=== PATIENT | female | born 1950 | race Two or more races ===

== ENCOUNTER 2017-08-02 11:29 | Inpatient (IN) | payer OTHER ==
[~2017-08-02] VITALS: Ht 154.9 cm; Wt 68.0 kg
[~2017-08-02 11:29] MED LIST: ASPIR 8181 MG; ATENOLOL100 MG PO; CELEBREX100 MG PO; CYMBALTA20 MG PO; LIPITOR40 MG; LIRICA; LYRICA100 MG; METFORMIN HCL850 MG; OMEPRAZOLE40 MG PO; OXYC1TAB9 PO; RESTORIL30 M1; SEPTRA DS TABLE1 TAB PO; XARELTO 10MG PO; ZANTAC300 MG PO
[2017-08-02] MEDS ORDERED: TOPROL XL50 M1 PO (11:46)
[2017-08-04] MEDS ORDERED: CLOPIDOGREL BIS75 MG PO (09:49)
[2017-08-04] MEDS ORDERED: ASPIR 8181 MG PO (09:49)
[2017-08-04] MEDS ORDERED: AVAPRO150 MG PO (09:49)
[2017-08-04] MEDS ORDERED: LIPITOR40 MG PO (09:49)
== END 2017-08-04 12:41 | disposition home or self-care (01) | DRG 311 ==
LOC: ER 11:29 → MEDI 19:30 → SEC-K 19:30 → MEDI 21:01
PROC: B246ZZZ Ultrasonography of Right and Left Heart (ICD-10-PCS; principal; 2017-08-02)
PROC: C23GYZZ Positron Emission Tomographic (PET) Imaging of Myocardium using Other Radionuclide (ICD-10-PCS; 2017-08-03)
PROC: 4A12XM4 Monitoring of Cardiac Stress, External Approach (ICD-10-PCS; 2017-08-03)
PROC: 3E033HZ Introduction of Radioactive Substance into Peripheral Vein, Percutaneous Approach (ICD-10-PCS; 2017-08-03)
DX: I24.9 Acute ischemic heart disease, unspecified (principal); I10 Essential (primary) hypertension; E11.9 Type 2 diabetes mellitus without complications; I25.10 Atherosclerotic heart disease of native coronary artery without angina pectoris

== ENCOUNTER 2017-12-14 12:48 | Outpatient (CLI) | payer OTHER ==
[~2017-12-14] VITALS: Ht 152.4 cm; Wt 77.6 kg
[~2017-12-14 12:48] MED LIST changes: +ASPIR 8181 MG PO; +AVAPRO150 MG PO; +CLOPIDOGREL BIS75 MG PO; +LIPITOR40 MG PO; +TOPROL XL50 M1 PO
== END 2017-12-14 13:15 | disposition home or self-care (01) ==
LOC: OFIC 805 12:48
DX: H92.01 Otalgia, right ear (principal); R68.84 Jaw pain

== ENCOUNTER 2018-01-23 07:53 | Outpatient (CLI) | payer OTHER ==
[~2018-01-23] VITALS: Ht 152.4 cm; Wt 77.6 kg
== END 2018-01-23 08:15 | disposition home or self-care (01) ==
LOC: OFIC 805 07:53
DX: J31.0 Chronic rhinitis (principal); J37.0 Chronic laryngitis; H90.3 Sensorineural hearing loss, bilateral

== ENCOUNTER 2020-10-04 18:55 | Emergency (ER) | payer OTHER ==
[~2020-10-04] VITALS: Ht 152.4 cm; Wt 72.1 kg
[2020-10-04] MEDS ORDERED: ATENOLOL25 MG PO (19:10)
[2020-10-04] MEDS ORDERED: ATORVASTATIN CA10 MG PO (19:11)
[2020-10-04] MEDS ORDERED: ESTAZOLAM2 MG PO (19:11)
[2020-10-04] MEDS ORDERED: DULOXETINE HCL30 MG PO (19:11)
[2020-10-04] MEDS ORDERED: IRBESARTAN300 MG PO (19:11)
[2020-10-04] MEDS ORDERED: METFORMIN HCL500 M4 PO (19:11)
[2020-10-04] MEDS ORDERED: ST. JOSEPH ASPI81 M2 PO (19:11)
[2020-10-04] MEDS ORDERED: OMEPRAZOLE40 MG PO (19:12)
[2020-10-04] MEDS ORDERED: OXYBUTYNIN CHLO15 MG PO (19:12)
== END 2020-10-04 23:35 | disposition home or self-care (01) ==
LOC: ER 18:55
DX: R42 Dizziness and giddiness (principal); K29.70 Gastritis, unspecified, without bleeding; I16.0 Hypertensive urgency; I10 Essential (primary) hypertension; R10.13 Epigastric pain

== ENCOUNTER 2022-09-12 09:44 | Outpatient (CLI) | payer OTHER ==
[~2022-09-12 09:44] MED LIST changes: +ATENOLOL25 MG PO; +ATORVASTATIN CA10 MG PO; +DULOXETINE HCL30 MG PO; +ESTAZOLAM2 MG PO; +IRBESARTAN300 MG PO; +METFORMIN HCL500 M4 PO; +OXYBUTYNIN CHLO15 MG PO; +ST. JOSEPH ASPI81 M2 PO
== END 2022-09-12 09:50 | disposition home or self-care (01) ==
LOC: TOM 09:44
PROVIDERS: ATTEND Otolaryngology
DX: T17.208A Unspecified foreign body in pharynx causing other injury, initial encounter (principal)

== ENCOUNTER 2022-12-27 07:35 | Outpatient (CLI) | payer OTHER | END 2022-12-27 07:39 | disposition home or self-care (01) | LOC: RAD 07:35 | PROVIDERS: ATTEND Urology | DX: I10 Essential (primary) hypertension (principal) ==